=== PATIENT | male | born 1985 | race Hispanic/Latino ===

== ENCOUNTER 2022-10-18 14:45 | Emergency (ER) | payer BC ==
[2022-10-18] MEDS ORDERED: FENTANYL CITR 100 MCG/2 ML ONE (16:01)
[2022-10-18] MEDS ORDERED: ALBUTEROL 2.5 MG/3 ML NEB SOL ONE (16:02)
[2022-10-18] MEDS ORDERED: DOXYCYCLINE 100 MG CAP PO ONE (16:02)
[2022-10-18] MEDS ORDERED: TDAP (DIPHTH,PERTUSS(ACELL),TET VAC) 0.5 ML VIAL IMVAC ONE (16:02)
--- NOTE | 2022-10-18 16:53 | RAD REPORT ---
EXAM DESCRIPTION: RAD - Ankle Right 3 View - 10/18/2022 4:39 pm CLINICAL HISTORY: Right ankle pain FINDINGS: No fracture or dislocation is seen. A radiopaque foreign body not seen
--- NOTE | 2022-10-18 17:05 | EDPHYS ---
Physician Documentation [facility] Name: Mart Ribeiro III Age: 37 yrs Sex: Male : 1985 Arrival Date: 10/18/2022 Time: 14:45 Bed 2 Private MD: ED Physician Maykel Browning HPI: 10/18 16:03 This 37 yrs old Male presents to ER via EMS with complaints of Leg Pain, BIT BY snw SOMETHING. 16:03 The patient presents with pain, that is acute, swelling. The complaints affect the snw right ankle. Context: resulted from "[place] the [place]". Treatment prior to arrival includes: no previous treatment. The patient has not experienced similar symptoms in the past. It is unknown whether or not the patient has recently seen a physician. hx of asthma and diabetes. Historical: - Allergies: 14:56 No Known Allergies; iw - PMHx: 14:56 Hypertensive disorder; Diabetes mellitus; iw ROS: 16:03 Constitutional: Negative for fever, chills, and weight loss, Eyes: Negative for injury, snw pain, redness, and discharge, ENT: Negative for injury, pain, and discharge, Neck: Negative for injury, pain, and swelling, Cardiovascular: Negative for chest pain, palpitations, and edema, Respiratory: Negative for shortness of breath, cough, wheezing, and pleuritic chest pain, Abdomen/GI: Negative for abdominal pain, nausea, vomiting, diarrhea, and constipation, Back: Negative for injury and pain, : Negative for injury, bleeding, discharge, and swelling, MS/Extremity: Negative for injury and deformity, Neuro: Negative for headache, weakness, numbness, tingling, and seizure, Psych: Negative for depression, anxiety, suicide ideation, homicidal ideation, and hallucinations. 16:03 Skin: Positive for puncture, swelling, of the right lateral malleolus. Exam: 15:48 Constitutional: This is a well developed, well nourished patient who is awake, alert, snw and in no acute distress. Head/Face: Normocephalic, atraumatic. Eyes: Pupils equal round and reactive to light, extra-ocular motions intact. Lids and lashes normal. Conjunctiva and sclera are non-icteric and not injected. Cornea within normal limits. Periorbital areas with no swelling, redness, or edema. ENT: Nares patent. No nasal discharge, no septal abnormalities noted. Tympanic membranes are normal and external auditory canals are clear. Oropharynx with no redness, swelling, or masses, exudates, or evidence of obstruction, uvula midline. Mucous membranes moist. Neck: Trachea midline, no thyromegaly or masses palpated, and no cervical lymphadenopathy. Supple, full range of motion without nuchal rigidity, or vertebral point tenderness. No Meningismus. Chest/axilla: Normal chest wall appearance and motion. Nontender with no deformity. No lesions are appreciated. Cardiovascular: Regular rate and rhythm with a normal S1 and S2. No gallops, murmurs, or rubs. Normal PMI, no JVD. No pulse deficits. Respiratory: Lungs have equal breath sounds bilaterally, wheezes to auscultation. No rales, rhonchi or wheezes noted. No increased work of breathing, no retractions or nasal flaring. Abdomen/GI: Soft, non-tender, with normal bowel sounds. No distension or tympany. No guarding or rebound. No evidence of tenderness throughout. Back: No spinal tenderness. No costovertebral tenderness. Full range of motion. MS/ Extremity: Pulses equal, no cyanosis. Neurovascular intact. Full, normal range of motion. Neuro: Awake and alert, GCS 15, oriented to person, place, time, and situation. Cranial nerves II-XII grossly intact. Motor strength 5/5 in all extremities. Sensory grossly intact. Cerebellar exam normal. Normal gait. Psych: Awake, alert, with orientation to person, place and time. Behavior, mood, and affect are within normal limits. 15:48 Skin: Appearance: normal except for affected area, injury, puncture(s), that are deep, of the right ankle - probable sting ray. Vital Signs: 14:59 Pulse 89; Resp 16; Temp 97.3; Pulse Ox 96% on R/A; Pain 10/10; iw 14:59 Pain Scale: Adult iw MDM: 15:36 Patient medically screened. snw 17:05 Differential diagnosis: puncture wound, infection, toxic exposure. Data reviewed: vital snw signs, nurses notes. I considered the following discharge prescriptions or medication management in the emergency department Medications were administered in the Emergency Department. See MAR. Counseling: I had a detailed discussion with the patient and/or guardian regarding: the historical points, exam findings, and any diagnostic results supporting the discharge/admit diagnosis, the presence of at least one elevated blood pressure reading (>120/80) during this emergency department visit, radiology results, the need for outpatient follow up, for definitive care, to return to the emergency department if symptoms worsen or persist or if there are any questions or concerns that arise at home. Response to treatment: the patient's symptoms have markedly improved after treatment. Special discussion: Based on the history and exam findings, there is no indication for further emergent testing or inpatient evaluation. I discussed with the patient/guardian the need to see the primary care provider for further evaluation of the symptoms. 10/18 15:48 Order name: XRAY Ankle RIGHT 3 view; Complete Time: 16:57 snw 10/18 15:48 Order name: Misc. Order: hot water emersion of ankle; Complete Time: 15:51 snw Administered Medications: 16:03 Drug: Boostrix Tdap IM 0.5 ml Route: IM; Site: left deltoid; aa5 16:03 Drug: Doxycycline PO 100 mg Route: PO; aa5 16:03 Drug: fentaNYL (PF) IM 25 mcg Route: IM; Site: right deltoid; aa5 16:03 Drug: Albuterol Inhalation 2.5 mg Route: Inhalation; aa5 Disposition Summary: 10/18/22 17:04 Discharge Ordered Location: Home snw Condition: Stable snw Diagnosis - PUNCTURE WOUND WITHOUT FOREIGN BODY RIGHT ANKLE snw Followup: snw - With: Emergency Department - When: As needed - Reason: Worsening of condition Followup: snw - With: Private Physician - When: 2 - 3 days - Reason: Recheck today's complaints, Continuance of care, Re-evaluation by your physician Discharge Instructions: - Discharge Summary Sheet snw - 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 snw - Puncture Wound snw Forms: - Work release form snw - Medication Reconciliation Form snw - Thank You Letter snw - Antibiotic Education snw - Prescription Opioid Use snw Prescriptions: - Doxycycline Hyclate 100 mg Oral Tablet - take 1 tablet by ORAL route every 12 hours; 20 tablet; Refills: 0, Product snw Selection Permitted - Tramadol 50 mg Oral Tablet - take 1 tablet by ORAL route every 8 hours as needed; 12 tablet; Refills: 0, snw Product Selection Permitted Signatures: Dispatcher [employer] EDMS Yuliet Smalls, CRACKING AND FANNING MACHINE OPERATOR-C CRACKING AND FANNING MACHINE OPERATOR-Csnw Anita Rm RN RN iw Charisse Munoz RN RN aa5 Corrections: (The following items were deleted from the chart) 16:05 15:48 Constitutional: This is a well developed, well nourished patient who is awake, snw alert, and in no acute distress. Head/Face: Normocephalic, atraumatic. Eyes: Pupils equal round and reactive to light, extra-ocular motions intact. Lids and lashes normal. Conjunctiva and sclera are non-icteric and not injected. Cornea within normal limits. Periorbital areas with no swelling, redness, or edema. ENT: Nares patent. No nasal discharge, no septal abnormalities noted. Tympanic membranes are normal and external auditory canals are clear. Oropharynx with no redness, swelling, or masses, exudates, or evidence of obstruction, uvula midline. Mucous membranes moist. Neck: Trachea midline, no thyromegaly or masses palpated, and no cervical lymphadenopathy. Supple, full range of motion without nuchal rigidity, or vertebral point tenderness. No Meningismus. Chest/axilla: Normal chest wall appearance and motion. Nontender with no deformity. No lesions are appreciated. Cardiovascular: Regular rate and rhythm with a normal S1 and S2. No gallops, murmurs, or rubs. Normal PMI, no JVD. No pulse deficits. Respiratory: Lungs have equal breath sounds bilaterally, clear to auscultation and percussion. No rales, rhonchi or wheezes noted. No increased work of breathing, no retractions or nasal flaring. Abdomen/GI: Soft, non-tender, with normal bowel sounds. No distension or tympany. No guarding or rebound. No evidence of tenderness throughout. Back: No spinal tenderness. No costovertebral tenderness. Full range of motion. MS/ Extremity: Pulses equal, no cyanosis. Neurovascular intact. Full, normal range of motion. Neuro: Awake and alert, GCS 15, oriented to person, place, time, and situation. Cranial nerves II-XII grossly intact. Motor strength 5/5 in all extremities. Sensory grossly intact. Cerebellar exam normal. Normal gait. Psych: Awake, alert, with orientation to person, place and time. Behavior, mood, and affect are within normal limits. snw
--- NOTE | 2022-10-18 17:05 | ER ---
Nurse's Notes [facility] Name: Mart Ribeiro III Age: 37 yrs Sex: Male : 1985 Arrival Date: 10/18/2022 Time: 14:45 Bed 2 Private MD: Diagnosis: PUNCTURE WOUND WITHOUT FOREIGN BODY RIGHT ANKLE Presentation: 10/18 14:55 Chief complaint: EMS states: swelling to outer left ankle, thinks he was bit by iw something , [place] , feels the pain up to hi knee cap . pt states he felt something grab a hold of him and then he shook his leg and it fell off. Coronavirus screen: At this time, the client does not indicate any symptoms associated with coronavirus-19. Ebola Screen: Patient negative for fever greater than or equal to 101.5 degrees Fahrenheit, and additional compatible Ebola Virus Disease symptoms Patient denies exposure to infectious person. Patient denies travel to an Ebola-affected area in the 21 days before illness onset. No symptoms or risks identified at this time. Initial Sepsis Screen: Does the patient meet any 2 criteria? No. Patient's initial sepsis screen is negative. Does the patient have a suspected source of infection? No. Patient's initial sepsis screen is negative. Risk Assessment: Do you want to hurt yourself or someone else? Patient reports no desire to harm self or others. Onset of symptoms was October 18, 2022. 14:55 Method Of Arrival: EMS: [facility] iw 14:55 Acuity: ANAHI 3 iw Historical: - Allergies: 14:56 No Known Allergies; iw - PMHx: 14:56 Hypertensive disorder; Diabetes mellitus; iw Vital Signs: 14:59 Pulse 89; Resp 16; Temp 97.3; Pulse Ox 96% on R/A; Pain 10/10; iw 14:59 Pain Scale: Adult iw ED Course: 14:47 Patient arrived in ED. im 14:56 Yuliet Smalls FNP-C is PHCP. snw 14:56 Maykel Browning MD is Attending Physician. snw 14:56 Triage completed. iw 14:57 Arm band placed on. iw 15:32 Charisse Munoz, RN is Primary Nurse. aa5 15:49 XRAY Ankle RIGHT 3 view Sent. iw 16:41 XRAY Ankle RIGHT 3 view In Process Unspecified. EDMS Administered Medications: 16:03 Drug: Boostrix Tdap IM 0.5 ml Route: IM; Site: left deltoid; aa5 16:03 Drug: Doxycycline PO 100 mg Route: PO; aa5 16:03 Drug: fentaNYL (PF) IM 25 mcg Route: IM; Site: right deltoid; aa5 16:03 Drug: Albuterol Inhalation 2.5 mg Route: Inhalation; aa5 Outcome: 17:04 Discharge ordered by MD. castañeda 17:31 Patient left the ED. aa5 Signatures: Dispatcher [employer] EDMS Yuliet Smalls, COLTON-C LINSEED OIL PRESS TENDER-Csnw Anita Rm RN RN iw Charisse Munoz RN RN aa5 Josee Crisostomo im Corrections: (The following items were deleted from the chart) 15:01 14:55 Chief complaint: EMS states: swelling to outer left ankle, thinks he was bit by iw something , [place] , feels the pain up to hi knee cap iw 15:01 14:59 Pulse 89bpm; Resp 16bpm; Pulse Ox 96% RA; Temp 97.3F; Pain 10/10, Adult; iw iw
[2022-10-18 17:44] VITALS: TEMP 97.3; O2SAT 96
== END 2022-10-18 17:31 | disposition home or self-care (01) ==
LOC: ER 14:45
DX: S91.031A Puncture wound without foreign body, right ankle, initial encounter (principal)
CPT/HCPCS: 73610; 96372; 99284; J7613; J3010